=== PATIENT | female | born 1980 | race Two or more races ===

== ENCOUNTER → 2024-07-03 | Outpatient (BNVA) | payer MEDICAID, SELFPAY | END | disposition home or self-care (01) | PROVIDERS: PCP Nurse Practitioner Family; Referring Provider Nurse Practitioner Family; Visit Provider Nurse Practitioner Family | DX: F32.1 Major depressive disorder, single episode, moderate (principal); F41.9 Anxiety disorder, unspecified | CPT/HCPCS: 99212; G0463 ==

== ENCOUNTER → 2024-08-03 | Outpatient (BNVA) | payer MEDICAID, SELFPAY | END | disposition home or self-care (01) | PROVIDERS: PCP Nurse Practitioner Family; Referring Provider Nurse Practitioner Family; Visit Provider Nurse Practitioner Family | DX: F32.1 Major depressive disorder, single episode, moderate (principal); F41.9 Anxiety disorder, unspecified | CPT/HCPCS: 99212; G0463 ==

== ENCOUNTER → 2024-08-17 | Outpatient (BNVA) | payer MEDICAID, SELFPAY | END | disposition home or self-care (01) | PROVIDERS: PCP Nurse Practitioner Family; Referring Provider Nurse Practitioner Family; Visit Provider Nurse Practitioner Family | DX: F33.1 Major depressive disorder, recurrent, moderate (principal) | CPT/HCPCS: 99212; G0463 ==

== ENCOUNTER → 2024-08-30 | Outpatient (CLI) | payer MEDICAID, SELFPAY ==
--- NOTE | 2024-08-30 | XR_ITS ---
Examination: CT abdomen with intravenous contrast CT pelvis with intravenous contrast 2-D coronal reconstructions 2-D sagittal reconstructions Date and time of exam:August 30, 2024 0926 hours INDICATIONS: Right lower abdominal pain left lower abdominal pain 3 months. CTDI: vol (mGy) 9.81 DLP: (mGycm) 522 Technique: Multiple axial sections of the abdomen and pelvis have been obtained. 64 slice high-resolution scanner used. 3 mm axial sections have been obtained, post intravenous injection 60 cc [id number] 2-D sagittal, coronal reconstructions obtained. Low dose protocols were performed. One or more of the following dose reduction techniques were used; automated exposure control, adjustment of the mA and/or KV according to patient size, use of iterative reconstruction technique. Findings: No focal liver or splenic lesions Absent gallbladder No pancreatic or adrenal mass No renal or ureteral calculi, no hydronephrosis Aorta normal size Normal appendix No bowel obstruction Retroverted uterus, mildly prominent cervix No pelvic abscess Bladder intact Osseous structures intact IMPRESSION: Mildly prominent cervix, recommend pelvic sonography follow-up
[2024-08-30 08:54] LABS: HCG Qualitative,Urine Negative
== END | disposition home or self-care (01) ==
PROVIDERS: PCP Nurse Practitioner Family; Referring Provider Nurse Practitioner Family; Visit Provider Nurse Practitioner Family
DX: N88.8 Other specified noninflammatory disorders of cervix uteri (principal); Z80.9 Family history of malignant neoplasm, unspecified
CPT/HCPCS: 74177; 81025; A4649; Q9967

== ENCOUNTER → 2024-09-06 | Outpatient (BNVA) | payer MEDICAID, SELFPAY | END | disposition home or self-care (01) | PROVIDERS: PCP Nurse Practitioner Family; Referring Provider Nurse Practitioner Family; Visit Provider Nurse Practitioner Family | DX: Z71.2 Person consulting for explanation of examination or test findings (principal); Z12.11 Encounter for screening for malignant neoplasm of colon; R19.8 Other specified symptoms and signs involving the digestive system and abdomen; R11.0 Nausea; Z80.9 Family history of malignant neoplasm, unspecified; R10.9 Unspecified abdominal pain; K62.89 Other specified diseases of anus and rectum | CPT/HCPCS: 99212; G0463 ==

== ENCOUNTER → 2024-10-29 | Outpatient (BNVA) | payer MEDICAID, SELFPAY | END | disposition home or self-care (01) | PROVIDERS: PCP Nurse Practitioner Family; Referring Provider Nurse Practitioner Family; Visit Provider Nurse Practitioner Family | DX: F33.1 Major depressive disorder, recurrent, moderate (principal); F41.9 Anxiety disorder, unspecified | CPT/HCPCS: 99212; G0463 ==

== ENCOUNTER 2024-11-07 10:55 | Outpatient (AMB) | payer MEDICAID, SELFPAY ==
[2024-11-07 11:09] VITALS: BP 116/72; PULSE 94; RESP 18; TEMP 36.2; O2SAT 99; BMI 35.9
--- NOTE | 2024-11-07 11:09 | AMB.GYNCLNOT ---
Vital Signs 11/07/24 11:09 Height 1.59 m Height Method Stated Weight 90.718 kg Weight Measurement Method Standing Scale BMI 35.9 BP 116/72 Blood Pressure Source Automatic Cuff Blood Pressure Location Left Upper Arm Position Sitting Respiration 18 Pulse 94 Pulse Source Monitor Temp 97.2 F Temp Source Oral Pulse Oximetry (%) 99 Oxygen Delivery Method Room Air Allergies/Home Meds Allergies & Medications Allergies No Known Allergies Allergy (Verified 11/07/24 11:10) Medication Reconciliation sertraline 100 mg tablet 100 mg PO QDAY #90 tabs 10/29/24 [Rx Confirmed 11/07/24] Intake Visit Data Collection New Patient or Established: Established Patient (seen at [facility] within 3 years) Reason for Visit:: Seeking information about sterilization procedure, decid? no tener m?s beb? (decided not to have more babies) Seen by Clinical Staff ONLY (RN/MA): No Net Application Architect Required: Yes Net Application Architect's name/title: TREE JOVEL / NURSE CASE MANAGER Do You Feel Safe at Home: Yes Authorities Contacted: N/A PCP or OBGYN visit in last 3 months: Yes Date of Last PCP or OBGYN visit: 10/29/24 Hx Now: No Are you currently on any form of Control: Yes Last menstrual period: 10/21/24 Pain Present Currently: No Pain Scale Used: Jorgensen-Underwood/Numerical Pain scale:: 0 Smoking Status Smoking Status: Never smoker Head Esthetician history Head Esthetician History Menstrual regularity: regular Flow: normal Monthly: Yes Menopausal: No Currently sexually active: Yes Questionnaires Covid-19 Vaccine Questionnaire Has patient been vacinated for Covid-19 Have you been vacinated for Covid-19: Yes PHQ-9 PHQ-2 Over the last 2 weeks, how often have you been bothered by any of the following problems? 1. Little interest or pleasure in doing things: several days 2. Feeling down, depressed, or hopeless: not at all Total score: 1 PHQ-9 3. Trouble falling or staying asleep, or sleeping too much: Not at all 4. Feeling tired or having little energy: Not at all 5. Poor appetite or overeating: Not at all 6. Feeling bad about yourself - or that you are a failure or have let yourself or your family down: Not at all 7. Trouble concentrating on things, such as reading the newspaper or watching television: Not at all 8. Moving or speaking so slowly that other people could have noticed? - Or the opposite - being so fidgety or restless that you have been moving around a lot more than usual: more than half the days 9. Thoughts that you would be better off or of hurting yourself in some way: Not at all Total score: 3 If you checked off any problems, how difficult have these problems made it for you to do your work, take care of things at home, or get along with other people?: not difficult at all Source: Developed by Drs. Jose Luis Browning, Litzy Wyman, Jani Beckham and colleagues, with an educational sarah from [employer]. Depression screen completed yes Social History Living Situation History Lives With: Spouse Housing: House Tobacco History Smoking Status: Never smoker Second Hand Smoke Exposure: No Alcohol History Alcohol Intake: Current Alcohol Intake Frequency: holidays/special occasions only Substance Use History Substance Use: NEVER Domestic Abuse History Do You Feel Safe at Home: Yes Past Medical History Past Medical History Have you ever been diagnosed with any of the following: Cardiology Problems Hypertension: No Endocrine Problems Diabetes Mellitus Type 1: No Diabetes Mellitus Type 2: No Surgical History Cholecystectomy: Yes History of Present Illness HPI Narrative Philly Frost presents to the Obstetrics and Gynecology clinic today to discuss surgical sterilization. The patient has decided she does not want to have any more children and is seeking information about the procedure for permanent contraception. During the visit, Philly inquired about the sterilization process, expressing her desire to understand the procedure and its implications. She specifically asked about the surgical approach, recovery time, and potential effects on her body. Philly was informed that the procedure would be a laparoscopic surgery performed in the hospital, involving three small incisions: one in the belly button and two on the sides. The fallopian tubes would be cut and cauterized during the operation. Philly expressed concern about potential impacts on her health and body functions. She was reassured that the sterilization procedure would not affect her menstrual periods or hormones, and its sole purpose is to prevent future pregnancies. The patient was informed that the surgery is outpatient, typically allowing her to return home after about two hours. Regarding recovery, Philly was advised that she would need approximately 5 to 7 days for pain and discomfort to subside. She was told she could likely return to work in about 72 hours post-surgery. The patient was also informed that the procedure would be performed under general anesthesia, rendering her completely asleep during the operation. Social History - Family Planning: Patient has decided not to have more children and is seeking surgical sterilization Review of Systems Review of Systems Systems Reviewed: All systems reviewed, normal except as documented Exam General Limitations: no limitations General Appearance: alert, in no apparent distress, comfortable, cooperative, healthy appearing, well developed and well groomed Head Head exam: atraumatic, normocephalic and normal inspection Chest Chest inspection: Present normal inspection and symmetric chest wall rise Abdominal Abdominal exam: Present soft and normal bowel sounds Psych Psychiatric exam: Present normal affect and normal mood Assessment & Plan Diagnosis / Problem List (1) Encounter for sterilization: Status: Acute Plan Desire for permanent contraception Assessment: Patient has decided not to have more children and is seeking permanent contraception. Laparoscopic tubal ligation is discussed as the recommended surgical sterilization method. This procedure involves three small incisions: one in the umbilicus and two on the sides of the abdomen. The fallopian tubes will be cut and cauterized during the surgery. It is emphasized that this procedure is permanent and irreversible. The patient is informed that the surgery will not affect her menstrual cycle or hormones, and its sole purpose is to prevent future pregnancies. Plan: - Provide consent form for laparoscopic tubal ligation for patient to sign today - Initiate insurance approval process for the procedure - Schedule pre-operative appointment for final consultation before surgery - Inform patient of the following: - Outpatient procedure with approximately 2-hour post-operative observation - General anesthesia will be used - 5-7 days required for post-operative pain management and healing - Patient can return to work in approximately 72 hours post-surgery - Procedure is immediately effective for contraception - Arrange for patient to meet with anesthesiologist prior to surgery - Anticipate approximately one month for procedure scheduling and preparation Office Procedures OB Clinic LOC & Office Proc's Nursing/Assessment Patient Status: Established Patient OB Clinic Nursing Assessment: BP Monitoring, Medication Reconciliation, Update PMH in EMR and Vital Signs OB Clinic Coordination of Care: Consent,records obtained, informed consent, Education Simp Pt/Fam, Lab and Imaging orders and Staff clarify orders Established Patient Charge Established Patient Point Assignment: 90 Established Patient Point Charge: EP Level 3 (80-115)
== END 2024-11-07 11:40 | disposition home or self-care (01) ==
LOC: HODSOBC 10:55
PROVIDERS: PCP Nurse Practitioner Family; Referring Provider Nurse Practitioner Family; Supervising Provider Obstetrics & Gynecology; Visit Provider Obstetrics & Gynecology
DX: Z30.2 Encounter for sterilization (principal)
CPT/HCPCS: 99213; G0463

== ENCOUNTER 2025-01-01 16:14 | Outpatient (AMB) | payer MEDICAID, SELFPAY ==
[2025-01-01 16:28] VITALS: BP 126/75; PULSE 86; RESP 17; TEMP 36.7; O2SAT 99; BMI 36.4
--- NOTE | 2025-01-01 16:28 | AMB.GYNCLNOT ---
Vital Signs 01/01/25 16:28 Height 1.59 m Height Method Stated Weight 92.136 kg Weight Measurement Method Standing Scale BMI 36.4 BP 126/75 Blood Pressure Source Automatic Cuff Blood Pressure Location Right Upper Arm Position Sitting Respiration 17 Pulse 86 Pulse Source Monitor Temp 98.0 F Temp Source Temporal Artery Scan Pulse Oximetry (%) 99 Oxygen Delivery Method Room Air Allergies/Home Meds Allergies & Medications Allergies No Known Allergies Allergy (Verified 01/01/25 16:49) Medication Reconciliation sertraline 100 mg tablet 100 mg PO QDAY #90 tabs 10/29/24 [Rx Confirmed 01/01/25] Intake Visit Data Collection New Patient or Established: Established Patient (seen at [facility] within 3 years) Reason for Visit:: PRE-OP Seen by Clinical Staff ONLY (RN/MA): No Car Chaser Required: Yes Car Chaser's name/title: TREE JOVEL LIBRARY TECHNICAL ASSISTANT Do You Feel Safe at Home: Yes Authorities Contacted: N/A PCP or OBGYN visit in last 3 months: Yes Date of Last PCP or OBGYN visit: 11/07/24 Hx Now: No Are you currently on any form of Control: Yes (NEXPLANON) Last menstrual period: 12/25/24 Pain Present Currently: No Pain Scale Used: Jorgensen-Underwood/Numerical Pain scale:: 0 Smoking Status Smoking Status: Never smoker 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 1. Little interest or pleasure in doing things: several days 2. Feeling down, depressed, or hopeless: several days Total score: 2 PHQ-9 3. Trouble falling or staying asleep, or sleeping too much: Not at all 4. Feeling tired or having little energy: Not at all 5. Poor appetite or overeating: Not at all 6. Feeling bad about yourself - or that you are a failure or have let yourself or your family down: Not at all 7. Trouble concentrating on things, such as reading the newspaper or watching television: Not at all 8. Moving or speaking so slowly that other people could have noticed? - Or the opposite - being so fidgety or restless that you have been moving around a lot more than usual: more than half the days 9. Thoughts that you would be better off or of hurting yourself in some way: Not at all Total score: 4 If you checked off any problems, how difficult have these problems made it for you to do your work, take care of things at home, or get along with other people?: not difficult at all Source: Developed by Drs. Jose Luis Browning, Litzy Wyman, Jani Beckham and colleagues, with an educational sarah from [employer]. Depression screen completed yes Social History Living Situation History Lives With: Spouse Housing: House Tobacco History Smoking Status: Never smoker Second Hand Smoke Exposure: No Alcohol History Alcohol Intake: Current Alcohol Intake Frequency: holidays/special occasions only Substance Use History Substance Use: NEVER Domestic Abuse History Do You Feel Safe at Home: Yes History of Present Illness HPI Narrative Patient presents for a preoperative visit initially scheduled for laparoscopic surgical sterilization on January 03, 2025. However, during the visit, she expressed a change in her decision, opting for a Nexplanon implant instead of the surgical procedure. The patient currently has a contraceptive implant in place, which is due for removal this year. She reports feeling that her current method is not improving yet, which appears to be the reason for her decision to change from surgical sterilization to a new implant. She has a history of Nexplanon implant insertion for contraception. The patient is currently using Nexplanon as a contraceptive implant, which is due for removal this year. The patient is a [place] speaker and requires [place] interpretation. Exam General General Appearance: alert, in no apparent distress and healthy appearing Head Head exam: atraumatic Neck Neck exam: Present normal inspection and trachea midline Chest Chest inspection: Present normal inspection and symmetric chest wall rise External exam: Present normal external exam; Absent tenderness Neuro Neurological exam: Present oriented X3 Psych Psychiatric exam: Present normal affect and normal mood Office Procedures OB Clinic LOC & Office Proc's Nursing/Assessment Patient Status: Established Patient OB Clinic Nursing Assessment: Medication Reconciliation, Update PMH in EMR and Vital Signs OB Clinic Coordination of Care: Complex Care and Chronic Disease 1-5, Consent,records obtained, informed consent, Education Simp Pt/Fam and Staff clarify orders Established Patient Charge Established Patient Point Assignment: 85 Established Patient Point Charge: EP Level 3 (80-115) Assessment & Plan Diagnosis / Problem List (1) Encounter for sterilization: Status: Acute Plan Contraception Management Plan: - Cancel scheduled laparoscopic surgical sterilization procedure on January 03, 2025. - Remove existing contraceptive implant. - Insert new Nexplanon implant. - Inform patient when Nexplanon is available for insertion. - Schedule appointment for Nexplanon insertion.
== END 2025-01-01 16:45 | disposition home or self-care (01) ==
LOC: HODSOBC 16:14
PROVIDERS: PCP Obstetrics & Gynecology; Referring Provider Obstetrics & Gynecology; Supervising Provider Obstetrics & Gynecology; Visit Provider Obstetrics & Gynecology
DX: Z30.2 Encounter for sterilization (principal); Z97.5 Presence of (intrauterine) contraceptive device; Z53.29 Procedure and treatment not carried out because of patient's decision for other reasons
CPT/HCPCS: 99213; G0463

== ENCOUNTER → 2025-01-23 | Outpatient (CLI) | payer MEDICAID, SELFPAY ==
--- NOTE | 2025-01-23 15:00 | XR_ITS ---
Examination: Transvaginal ultrasound of the pelvis, complete Technique: Transvaginal sonographic images pelvis performed using cabral scale imaging Exam date and time: January 23, 2025 1514 hours INDICATIONS: Pelvic pain beginning 8 months ago FINDINGS: Uterus 7.8 cm endometrial stripe 0.3 cm No uterine mass or intrauterine gestation Right ovary 2.6 cm arterial flow Left ovary 3.0 cm arterial flow, small follicles, the largest 8 mm IMPRESSION: Negative examination
== END | disposition home or self-care (01) ==
PROVIDERS: PCP Nurse Practitioner Family; Referring Provider Nurse Practitioner Family; Visit Provider Nurse Practitioner Family
DX: N88.4 Hypertrophic elongation of cervix uteri (principal); R10.2 Pelvic and perineal pain
CPT/HCPCS: 76830

== ENCOUNTER → 2025-01-31 | Outpatient (BNVA) | payer MEDICAID, SELFPAY | END | disposition home or self-care (01) | PROVIDERS: PCP Nurse Practitioner Family; Referring Provider Nurse Practitioner Family; Visit Provider Nurse Practitioner Family | DX: Z71.2 Person consulting for explanation of examination or test findings (principal); N88.4 Hypertrophic elongation of cervix uteri | CPT/HCPCS: 99212; G0463 ==

== ENCOUNTER 2025-02-04 10:02 | Outpatient (AMB) | payer MEDICAID, SELFPAY ==
[2025-02-04 10:28] VITALS: BP 110/71; PULSE 84; RESP 17; TEMP 36.1; O2SAT 96; BMI 37.2
--- NOTE | 2025-02-04 10:28 | GYNCLNT_ITS ---
Vital Signs 02/04/25 10:28 Height 1.59 m Height Method Stated Weight 94.064 kg Weight Measurement Method Standing Scale BMI 37.2 BP 110/71 Blood Pressure Source Automatic Cuff Blood Pressure Location Right Upper Arm Position Sitting Respiration 17 Pulse 84 Pulse Source Monitor Temp 97.0 F Temp Source Temporal Artery Scan Pulse Oximetry (%) 96 Oxygen Delivery Method Room Air Allergies/Home Meds Allergies & Medications Allergies No Known Allergies Allergy (Verified 02/04/25 10:29) Medication Reconciliation sertraline 100 mg tablet 100 mg PO QDAY #90 tabs 10/29/24 [Rx Confirmed 02/04] Intake Visit Data Collection New Patient or Established: Established Patient (seen at [facility] within 3 years) Reason for Visit:: NEXPLANON REMOVAL / REINSERT Seen by Clinical Staff ONLY (RN/MA): No Shop Cooper Required: Yes Do You Feel Safe at Home: Yes Authorities Contacted: N/A PCP or OBGYN visit in last 3 months: Yes Date of Last PCP or OBGYN visit: 01/01/25 Hx Now: No Are you currently on any form of Control: Yes Last menstrual period: 01/19/25 Pain Present Currently: No Pain Scale Used: Jorgensen-Underwood/Numerical Pain scale:: 0 Smoking Status Smoking Status: Never smoker Barrel Rifler Hook history Barrel Rifler Hook History Menstrual regularity: regular Flow: normal Monthly: Yes How many days does period last: 3 Age at menarche: 14 Currently sexually active: Yes 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 1. Little interest or pleasure in doing things: not at all 2. Feeling down, depressed, or hopeless: not at all Total score: 0 PHQ-9 3. Trouble falling or staying asleep, or sleeping too much: Not at all 4. Feeling tired or having little energy: Not at all 5. Poor appetite or overeating: Not at all 6. Feeling bad about yourself - or that you are a failure or have let yourself or your family down: Not at all 7. Trouble concentrating on things, such as reading the newspaper or watching television: Not at all 8. Moving or speaking so slowly that other people could have noticed? - Or the opposite - being so fidgety or restless that you have been moving around a lot more than usual: not at all 9. Thoughts that you would be better off or of hurting yourself in some way: Not at all Total score: 0 If you checked off any problems, how difficult have these problems made it for you to do your work, take care of things at home, or get along with other people?: not difficult at all Source: Developed by Drs. Jose Luis Browning, Litzy Wyman, Jani king nd colleagues, with an educational sarah from [email or web address]. Depression screen completed yes Social History Living Situation History Marital Status: Lives With: Spouse Housing: House Tobacco History Smoking Status: Never smoker Second Hand Smoke Exposure: No Alcohol History Alcohol Intake: Current Alcohol Intake Frequency: holidays/special occasions only Substance Use History Substance Use: NEVER Domestic Abuse History Do You Feel Safe at Home: Yes History of Present Illness HPI Narrative Philly Frost presents today for removal and reinsertion of her Nexplanon subdermal implant. This is her first Nexplanon implant. The patient does not report any specific complaints or concerns related to the implant. She is c ooperative with the procedure and does not express any questions or reservations about the removal and reinsertion process. The patient's surgical history includes the initial Nexplanon subdermal implant insertion and the current removal and reinsertion procedure on 02/04/2025. Her current medication is the Nexplanon subdermal implant, which is being removed and reinserted during this visit. This is her first time using this contraceptive method. For contraception, the patient is using the Nexplanon subdermal implant. This is her first Nexplanon implant. 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 Exam General General Appearance: alert, in no apparent distress and healthy appearing Head Head exam: atraumatic Neck Neck exam: Present normal inspection and trachea midline Chest Chest inspection: Present normal inspection and symmetric chest wall rise External exam: Present normal external exam; Absent tenderness Neuro Neurological exam: Present oriented X3 Psych Psychiatric exam: Present normal affect and normal mood Office Procedures OB Clinic LOC & Office Proc's Nursing/Assessment Patient Status: Established Patient OB Clinic Nursing Assessment: Medication Reconciliation, Update PMH in EMR and Vital Signs OB Clinic Coordination of Care: Complex Care and Chronic Disease 1-5, Consent,records obtained, informed consent, Education Simp Pt/Fam and Staff clarify orders Established Patient Charge Established Patient Point Assignment: 85 Established Patient Point Charge: EP Level 3 (80-115) Injection/Vaccine Admin SQ Im Injection: Yes In Clinic Bedside tests Bedside HCG: Yes Results Urine HCG Urine HCG Negative Last Edit by Stefanie Martin MA on 02/04/25 10:3 5 Assessment & Plan Diagnosis / Problem List (1) Family planning, subdermal contraceptive checking/reinsertion/removal: Status: Acute Plan Contraception management Plan: - Removed existing Nexplanon implant - Inserted new Nexplanon implant through the same site - Applied local anesthetic prior to procedure - Wrapped insertion site after procedure - Patient instructed to remove wrapping after 3-4 hours - Provided patient with informational paper about the procedure Additional Assessment Procedure Patient presented for Nexplanon removal and reinsertion. The old implant was palpated and removed from the left upper arm under sterile conditions. A new Nexplanon implant (Lot #[id number], Exp 12/2026) was inserted subdermally in the same arm using standard sterile technique. Local anesthesia achieved with 2cc of 1% lidocaine. Placement was confirmed by palpation. Sterile dressing applied. Patient tolerated the procedure well without immediate complications
== END 2025-02-04 10:52 | disposition home or self-care (01) ==
LOC: HODSOBC 10:02
PROVIDERS: PCP Obstetrics & Gynecology; Referring Provider Obstetrics & Gynecology; Supervising Provider Obstetrics & Gynecology; Visit Provider Obstetrics & Gynecology
DX: Z30.46 Encounter for surveillance of implantable subdermal contraceptive (principal)
CPT/HCPCS: 11983; 81025; 96372; 99213; J3490; J7301; G0463

== ENCOUNTER → 2025-04-15 | Outpatient (BNVA) | payer MEDICAID, SELFPAY | END | disposition home or self-care (01) | PROVIDERS: PCP Nurse Practitioner Family; Referring Provider Nurse Practitioner Family; Visit Provider Nurse Practitioner Family | DX: F32.1 Major depressive disorder, single episode, moderate (principal); F41.9 Anxiety disorder, unspecified; N95.9 Unspecified menopausal and perimenopausal disorder | CPT/HCPCS: 99212; G0463 ==

== ENCOUNTER → 2025-06-10 | Outpatient (BNVA) | payer MEDICAID, SELFPAY | END | disposition home or self-care (01) | PROVIDERS: PCP Nurse Practitioner Family; Referring Provider Nurse Practitioner Family; Visit Provider Nurse Practitioner Family | DX: Z00.01 Encounter for general adult medical examination with abnormal findings (principal); Z12.39 Encounter for other screening for malignant neoplasm of breast; Z71.3 Dietary counseling and surveillance; E55.9 Vitamin D deficiency, unspecified; R53.83 Other fatigue; N95.9 Unspecified menopausal and perimenopausal disorder; F32.1 Major depressive disorder, single episode, moderate; F41.9 Anxiety disorder, unspecified; Z23 Encounter for immunization; R68.82 Decreased libido | CPT/HCPCS: 90471; 90686; 99173; 99215; G0008 ==

== ENCOUNTER → 2025-06-17 | Outpatient (BNVA) | payer MEDICAID, SELFPAY | END | disposition home or self-care (01) | PROVIDERS: PCP Nurse Practitioner Family; Referring Provider Nurse Practitioner Family; Visit Provider Nurse Practitioner Family | DX: Z71.2 Person consulting for explanation of examination or test findings (principal); R68.82 Decreased libido; N95.9 Unspecified menopausal and perimenopausal disorder; E55.9 Vitamin D deficiency, unspecified; J20.9 Acute bronchitis, unspecified | CPT/HCPCS: 99213 ==

== ENCOUNTER → 2025-07-08 | Outpatient (BNVA) | payer MEDICAID, SELFPAY | END | disposition home or self-care (01) | PROVIDERS: PCP Nurse Practitioner Family; Referring Provider Nurse Practitioner Family; Visit Provider Nurse Practitioner Family | DX: Z71.3 Dietary counseling and surveillance (principal); N95.9 Unspecified menopausal and perimenopausal disorder; R68.82 Decreased libido; E66.9 Obesity, unspecified; F32.1 Major depressive disorder, single episode, moderate; L98.8 Other specified disorders of the skin and subcutaneous tissue; Z68.34 Body mass index [BMI] 34.0-34.9, adult | CPT/HCPCS: 99213 ==

== ENCOUNTER → 2025-07-11 | Outpatient (CLI) | payer MEDICAID, SELFPAY ==
--- NOTE | 2025-07-11 10:15 | XR_ITS ---
Examination: Screening digital mammography, bilateral Computer aided detection 3-D breast Tomosynthesis, bilateral Date and time of exam: July 11, 2025, 10:33 a.m. Indication: Screening Technique: Nonmagnified MLO, CC views of the breasts to been obtained, reconstructed from 3-D Tomosynthesis images. R2 computer aided detection program utilized for evaluation of suspicious masses and/or abnormal calcifications. 3-D Tomosynthesis images obtained. Findings: The breasts are heterogeneously dense, which may obscure small masses 25 mm circumscribed nodule 12:00 retroareolar region right breast 17 mm circumscribed nodule upper outer left breast anterior depth These may represent cysts Impression: BI-RADS Category 0: Incomplete: Need additional imaging evaluation Recommend follow-up spot tomographic views of asymmetries as above with bilateral breast sonography to complete
== END | disposition home or self-care (01) ==
LOC: CDIM 10:00
PROVIDERS: Referring Provider Nurse Practitioner Family; Visit Provider Nurse Practitioner Family
DX: Z12.31 Encounter for screening mammogram for malignant neoplasm of breast (principal); R92.8 Other abnormal and inconclusive findings on diagnostic imaging of breast; N64.89 Other specified disorders of breast
CPT/HCPCS: 77063; 77067

== ENCOUNTER → 2025-07-17 | Outpatient (BNVA) | payer MEDICAID, SELFPAY | END | disposition home or self-care (01) | PROVIDERS: PCP Nurse Practitioner Family; Referring Provider Nurse Practitioner Family; Visit Provider Nurse Practitioner Family | DX: Z71.2 Person consulting for explanation of examination or test findings (principal) | CPT/HCPCS: 99212; G0463 ==